=== PATIENT | female | born 1960 | race Caucasian/White ===

== ENCOUNTER 2016-06-07 11:43 | Inpatient (IN) | payer MEDICARE ==
[2016-06-01 16:31] LABS: HEMATOCRIT 42.2 % (36.0-48.0); HEMOGLOBIN 13.3 g/dL (12.0-16.0)
[2016-06-01 16:40] LABS: CALCIUM, SERUM 9.4 MG/DL (8.5-10.4); CHLORIDE, SERUM 102 MMOL/L (96-112); CO2 (CARBON DIOXIDE) 30 MMOL/L (24-34); GFR AFRICAN AMERICAN 84 ML/MIN (>=60); GFR NON AFRICAN AMERICAN 72 ML/MIN (>=60); GLUCOSE, SERUM 112 MG/DL (60-99); POTASSIUM, SERUM 4.2 MMOL/L (3.5-5.3); SODIUM, SERUM 140 MMOL/L (135-148)
[2016-06-01 16:41] LABS: BUN (BLOOD UREA NITROGEN) 15 MG/DL (6-23)
--- NOTE | ~2016-06-07 | CN ---
Consultation Report [facility] [address] [place]. [address] NAME: BEVERLY ROBERTS : 64 STATUS : ADM IN PAT#: [id number] AGE: 56 ADM/REG DATE : 06/07/16 MR#: [id number] REPORT SERV DATE: 06/08/16 DICTATED BY: MAKENNA OLIVIER DATE: 06/08/16 REPORT STATUS : Draft TRANSCRIBED BY: MODL DATE: 06/08/16 CONSULTATION DATE OF CONSULTATION: 06/07/2016 REASON FOR CONSULTATION: Consulted for hypertension. IDENTIFYING DATA: 1. Primary care physician, the patient previously has no PCP, goes to a walk-in clinic, as needed for her health care. 2. Orthopedist, Dr. Can Siu. Previously, had a bilateral TKA with Dr. Julio Cesar Dillon in 2014, and a lumbar fusion in 1998, with Dr. Cam Cerda. 3. Psychiatrist. The patient goes to [facility] and sees Dr. Mayer. HISTORY OF PRESENT ILLNESS: This is a pleasant 56-year-old female, who presents to Dr. Can Siu with intractable pain in her lower back and right hip. She has failed multiple attempts at conservative treatment, she has had a previous lumbar fusion in 1998 of L5-S1 with Dr. Cam Cerda. She displays a L3 through L5 disk disease and stenosis, failing conservative treatment and presents for surgery and is status post L3-L5 open posterior lumbar laminectomy on 06/07/2016, with Dr. Can Siu. The hospitalist have been consulted to help manage her hypertension. At present time, her blood pressure is controlled at 120/59. The patient's history was obtained through interview with the patient and her , and noted technology methodology consultant notes from Dr. Julio Cesar Dillon in 2014. PAST MEDICAL HISTORY: 1. Wears glasses. 2. Speech impediment. 3. Hearing impaired. She reads lips, but her states she can hear slightly out of the right ear. 4. Hypertension. 5. PE in 2010, due to taking hormones. 6. Arthritis. 7. Chronic lumbar pain. 8. Lumbar stenosis. 9. Morbid obesity. 10.Depression. 11.Anxiety. 12.Hypercholesterolemia. HOME MEDICATIONS: 1. Ziac 10/6.25, one tablet p.o. every morning. 2. Valium 10 mg p.o. twice a day. Consultation Report [facility] [address] [place] [place]. [address] NAME: BEVERLY ROBERTS : 64 STATUS : ADM IN PAT#: [id number] AGE: 56 ADM/REG DATE : 06/07/16 MR#: [id number] REPORT SERV DATE: 06/08/16 DICTATED BY: MAKENNA OLIVIER DATE: 06/08/16 REPORT STATUS : Draft TRANSCRIBED BY: CHANDA DATE: 06/08/16 3. Doxepin 50 mg p.o. at bedtime. 4. [place] 10/325 one tablet p.o. every 6 hours p.r.n. pain. ALLERGIES: THE PATIENT HAS NUMEROUS ALLERGIES. PLEASE SEE HER MED LIST. HER RELATES THAT MOST OF THE MEDICATIONS ARE MORE OF AN INTOLERANCE THAN AN ACTUAL ALLERGY. SOCIAL HISTORY: The patient is for 35 years. Has two children, one grown male and one female, lives in a single-level home. No smoking, no illicit drugs. Occasional very rare alcohol use. FAMILY HISTORY: 1. Mother is , had hypertension and was diabetic. Father is . Family does not know specific history about his health, but it was noted he was a heavy smoker and used alcohol. 2. The patient has no siblings. She is an only child. SURGICAL HISTORY: 1. Bilateral TKA 09/01/2014, with Dr. Julio Cesar Dillon. 2. Knee surgery, 1993. 3. Cardiac surgery as a child for a heart murmur. 4. Appendectomy, 1981. 5. Cholecystectomy, 1998. 6. Pancreatitis. 7. Esophageal polyps in 05/2015. 8. Colonoscopy in 05/2015. 9. Lumbar fusion 1998, with Dr. Cam Cerda. 10.Hysterectomy, age 38. REVIEW OF SYSTEMS: Negative other than what is included with HPI. The patient does have a speech impediment, but she can communicate without difficulty. She states no shortness of breath, no nausea and vomiting, no abdominal pain, no chest pain, no fever. Displays no agitation or confusion. PHYSICAL EXAMINATION: VITAL SIGNS: From today: Blood pressure 120/59, heart rate 86, respiratory rate 18, O2 saturation 94% on 2 L nasal cannula. GENERAL: This is a pleasant morbidly obese, female, resting in bed, in no acute distress. She does have a Dilaudid [employer]ATIONS pump in use for pain control postoperatively. NEURO: Her head is atraumatic, normocephalic. Upon awakening her, she was alert and oriented x3. Her cranial nerves 2 through 12 are grossly intact. Her mood is appropriate. NECK: She has a very large neck. It is supple, trachea is midline. No JVD noted. No obvious thyromegaly or lymphadenopathy. EENT: Her sclerae are nonicteric. Her pupils are equal and reactive to light. Her nares are patent. Her mucous membranes moist. Her tongue is midline. No deviation. Her soft Consultation Report [facility] [address] [place]. [address] NAME: BEVERLY ROBERTS : 64 STATUS : ADM IN [facility]#: [id number] AGE: 56 ADM/REG DATE : 06/07/16 MR#: [id number] REPORT SERV DATE: 06/08/16 DICTATED BY: MAKENNA OLIVIER DATE: 06/08/16 REPORT STATUS : Draft TRANSCRIBED BY: CHANDA DATE: 06/08/16 palate rises equally with phonation. CHEST: No pain with palpation. LUNGS: Clear to auscultation bilaterally. She has normal respiratory effort. No increased work of breathing with conversation. She was encouraged to use her incentive spirometer every one hour while awake. CARDIOVASCULAR: S1, S2. Auscultation reveals a regular rate and rhythm. She is on defensive monitoring with a rate of 86. ABDOMEN: Obese, soft, nontender, with bowel sounds active. No palpable organomegaly. Her last bowel movement was 06/06/2016. EXTREMITIES: Her pulses are present bilaterally. No calf tenderness. She does have slight edema in her ankles and her feet. Has bilateral TEDs and SCDs in place for DVT prophylaxis. SKIN: Warm and dry. No unusual rashes, lesions, normal color and turgor. PSYCH: The patient is pleasant. She is cooperative. She has appropriate mood and affect at present time. Surgical wound site, her dressings dry and intact. She has a Davol drain that is compressed with sanguinous drainage noted. LABORATORY DATA: Sodium 140, potassium 4.2, chloride 102, BUN 15, creatinine 0.90, GFR 84, glucose 112, calcium 9.4, hemoglobin 13.1, hematocrit 42.2. Present blood sugar is 147. On 05/11/2016, she had an EKG that was displaying normal sinus rhythm with a rate of 76. ASSESSMENT AND PLAN: 1. We have been consulted to manage this patient's hypertension. Presently, her blood pressure is under control at 120/59. She does have a history of hypertension. Aware. We will continue her home medications for a.m., which is Ziac. She will be placed on a cardiac diet. 2. Morbid obesity. This lady has a weight of 281 pounds and a BMI of 50.0. She has no history of obstructive sleep apnea, but during sleep, she is snoring very loudly with shallow breathing at times. She will have continuous O2 saturation monitoring ordered while she is on a [employer] specifically with O2 to keep her saturations 92% or greater. 3. Anxiety and depression. Aware. She does see a psychiatrist, Dr. Mayer at [facility]. We will continue her Valium and her Sinequan daily. 4. A.m. labs to be obtained: BMP, magnesium, CBC, hemoglobin A1c, and a TSH. The hospitalist group would like to thank you for this consultation. Let us know if we can be of any further assistance. JRERY Makenna Olivier NP Consultation Report [address] [address] NAME: BEVERLY ROBERTS : 64 STATUS : ADM IN PAT#: [id number] AGE: 56 ADM/REG DATE : 06/07/16 MR#: [id number] REPORT SERV DATE: 06/08/16 DICTATED BY: MAKENNA OLIVIER DATE: 06/08/16 REPORT STATUS : Draft TRANSCRIBED BY: CHANDA DATE: 06/08/16 / [id number] CC: Can Siu DO
--- NOTE | ~2016-06-07 | OP ---
Record Of Operation [facility] [address] [place]. [address] NAME: BEVERLY ROBERTS : 64 STATUS : ADM IN PAT#: [id number] AGE: 56 ADM/REG DATE : 06/07/16 MR#: [id number] REPORT SERV DATE: 06/07/16 DICTATED BY: CAN MARI DATE: 06/07/16 REPORT STATUS : Draft TRANSCRIBED BY: MODL DATE: 06/07/16 DATE OF PROCEDURE: 06/07/2016 PREOPERATIVE DIAGNOSES: L3 through L5 disk disease and stenosis, lumbar radiculopathy, and intractable pain. POSTOPERATIVE DIAGNOSES: L3 through L5 disk disease and stenosis, lumbar radiculopathy, and intractable pain. PROCEDURE: 1. L3 through L5 open laminectomy and bilateral foraminotomies, with decompression of the L3 through L5 nerve roots bilaterally (this was done for stenosis in addition to that needed for the interbody fusion portion of the case. 2. L3 through L5 posterolateral fusion bilaterally. 3. L3 through 5 posterior segmental spinal instrumentation using Medtronic pedicle screws. 4. Local morcellized autograft, allograft, bone matrix, neuromonitoring, intraoperative O- arm CT scan with computer navigation, and transforaminal lumbar interbody fusion, L3-4 and L4-L5. SURGEON: Can Mari DO. ANESTHESIA: General. ESTIMATED BLOOD LOSS: 200 mL. COMPLICATIONS: None. INDICATIONS: The patient is a pleasant 56-year-old, with intractable back and buttock pain, failed conservative treatment. After discussion of risks and benefits, she elected to proceed with surgery. PROCEDURE IN DETAIL: I identified the patient in the holding area. Consent was obtained, went to the operating room, underwent general anesthesia with endotracheal intubation, prepped and draped in the usual sterile fashion, operative safety pause was performed, and then we proceeded with surgery. A midline longitudinal incision was made, L3 through L5 was taken down through the fascial layer. Paraspinous muscles were subperiosteally elevated to the tips of transverse processes. Self-retaining retractors were placed. O-arm registration frame was placed in the iliac crest. O-arm was brought in for intraoperative CT scan. Computer registration materials were verified. Under computer guidance, pedicle screws from Medtronic were placed at L3 through L5 bilaterally. O-arm was brought back in to verify good placement of instrumentation. Rongeur was used to remove spinous processes and underlying lamina at L3 through L5. Kerrison removed remaining lamina and underlying ligamentum flavum, and performed partial facetectomies bilaterally L3 through L5 to decompress the L3 through L5 nerve roots bilaterally. Rods were placed over the screws at L3 through L5 bilaterally. Setscrews were placed and final tightened. A knife was used to perform an annulotomy at the L3-L4 level. The disk space was prepared with curettes, rasp, Record Of Operation [address] [address] NAME: BEVERLY ROBERTS : 64 STATUS : ADM IN PAT#: [id number] AGE: 56 ADM/REG DATE : 06/07/16 MR#: [id number] REPORT SERV DATE: 06/07/16 DICTATED BY: CAN MARI DATE: 06/07/16 REPORT STATUS : Draft TRANSCRIBED BY: MODL DATE: 06/07/16 and endplate cutters, and then local morcellized autograft and allograft bone matrix were packed into the L3-L4 interspace. This was repeated at the L4-L5 interspace as well. High- speed decorticating shirley was used to decorticate the remaining bony surfaces, L3 through L5. Irrigation was performed. Hemostasis was achieved. Local morcellized autograft and allograft bone matrix were packed over the decorticated surfaces at L3 through L5. Subfascial drain was placed. A gram of vancomycin powder was sprinkled over the surgical wound. Layered closure was performed. Sterile dressings were applied. The patient awoke, extubated, and taken to recovery room in stable condition. OPERATIVE FINDINGS: L3 through L5 disk disease and stenosis. No sustained neuromonitoring alerts. JONATHAN/MODClover Can Mari DO / [id number] CC: Can Mari DO
--- NOTE | ~2016-06-07 | PREOPHP ---
PreOp History and Physical [place] [id number] [facility] [place]. [address] NAME: BEVERLY ROBERTS : 64 STATUS : ADM IN PAT#: [id number] AGE: 56 ADM/REG DATE : 06/07/16 MR#: [id number] REPORT SERV DATE: 06/07/16 DICTATED BY: CAN SIU DATE: 06/07/16 REPORT STATUS : Draft TRANSCRIBED BY: CHANDA DATE: 06/07/16 CHIEF COMPLAINT: Back pain. HISTORY OF PRESENT ILLNESS: The patient is a 56-year-old with intractable pain in the lower back and right hip. She has failed multiple attempts at conservative treatment and had a previous fusion in [address] Cerda at L5-S1. After informed consent and discussion of risks and benefits, elected to proceed with surgical intervention at this time. She has failed physical therapy, chiropractic steroid injections, and various medications and activity modification. REVIEW OF SYSTEMS: She denies chest pain, shortness of breath, and bowel or bladder changes. ALLERGIES: INCLUDE; ALEVE, ASPIRIN, CELEBREX, DOXYCYCLINE, GLUCOSAMINE, LODINE, MORPHINE, CEPHALEXIN, SOMA, ULTRAM, VICOPROFEN, VIOXX, AND ZOLOFT. HOME MEDICATIONS: Cyclobenzaprine, doxepin, [place], Valium. FAMILY HISTORY: Noncontributory. PAST MEDICAL HISTORY: Includes; hypertension, depression, history of blood clots, and high cholesterol. PHYSICAL EXAMINATION: VITAL SIGNS: Height is 5 feet 4 inches, weight 280, BMI 48.1. GENERAL: The patient is healthy appearing. No acute distress. PSYCH: Alert and oriented x3. Normal mood and affect. Gait is antalgic. VASCULAR: No extremity swelling. HEART: Regular rate and rhythm. LUNGS: Clear to auscultation. ABDOMEN: Soft, nontender, nondistended with good bowel sounds. BREASTS AND RECTAL: Both deferred. NEUROLOGIC: Strength in lower extremities remains intact. No focal deficits. IMAGING: I have reviewed the CT of the lumbar spine. It does show L3-L5 disk disease and stenosis with what appears to be a solid fusion at L5-S1. ASSESSMENT: L3 through L5 disk disease and stenosis, failed conservative treatment as detailed above. PLAN: The patient presents today for surgical intervention. Consent was obtained. All questions were answered, ready to proceed. JCE/CHANDA PreOp History and Physical [address] [place]. [address] NAME: BEVERLY ROBERTS : 64 STATUS : ADM IN PAT#: [id number] AGE: 56 ADM/REG DATE : 06/07/16 MR#: [id number] REPORT SERV DATE: 06/07/16 DICTATED BY: CAN SIU DATE: 06/07/16 REPORT STATUS : Draft TRANSCRIBED BY: CHANDA DATE: 06/07/16 Can Siu DO / [id number] CC: Can Siu DO
--- NOTE | ~2016-06-07 | CN ---
Consultation Report [facility] [address] [place]. [address] NAME: BEVERLY ROBERTS : 64 STATUS : DIS IN PAT#: [id number] AGE: 56 ADM/REG DATE : 06/07/16 MR#: [id number] REPORT SERV DATE: 06/11/16 DICTATED BY: KLAUS TERAN III DATE: 06/11/16 REPORT STATUS : Draft TRANSCRIBED BY: MODClover DATE: 06/11/16 DATE OF CONSULTATION: 06/09/2016 REQUESTING PHYSICIAN: Can Siu D.O. REASON: Postoperative urinary retention. HISTORY OF PRESENT ILLNESS: Ms Roberts is a 56-year-old, white female, admitted to the hospital for spine surgery. She had a catheter during the surgery that was removed postoperatively. She was unable to void and it was replaced. PAST MEDICAL HISTORY: Hearing impaired, speech impediment, hypertension, history of PE, arthritis, esophageal polyps, depression, and anxiety. PAST SURGICAL HISTORY: Appendectomy, cholecystectomy, colonoscopy, hysterectomy, bilateral knee replacements, and cardiac surgery as a child. MEDICATIONS: Home medications were reviewed. PHYSICAL EXAMINATION: GENERAL: The patient is in bed. She appears comfortable. Her Flores catheter is in place draining clear urine. ASSESSMENT: Postoperative urinary retention. PLAN: We will leave the Flores catheter for one week, then perform a voiding trial. PH/CHANDA Klaus Teran III, M.D. / [id number] CC: Can Siu DO
[~2016-06-07 11:43] MED LIST: CRESTOR5 MG PO; CYMBALTA20 PO; CYMBALTA60 PO; NORCO1 TAB PO; PERCOCET1 TA4 PO; SINEQUAN 50 MG50 MG PO; V5 PO; VALIUM10 MG PO; ZANAFLEX 4 MG TA4 MG PO; ZIAC10 PO
[2016-06-07 23:45] LABS: BASOPHILS 0.1 %; BASOPHILS ABSOLUTE 0.01 10/3/uL (0.0-0.16); EOSINOPHILS 0 %; HEMOGLOBIN 10.4 g/dL (12.0-16.0); IMMATURE GRANULOCYTES 0.4 %; IMMATURE GRANULOCYTES ABSOLUTE 0.04 10/3/uL (0.0-0.11); LYMPHOCYTES 11.9 %; LYMPHOCYTES ABSOLUTE 1.14 10/3/uL (0.67-4.30); MEAN CORPUS HGB CONC 31.7 g/dL (32.0-36.0); MEAN CORPUSCULAR HEMOGLOB 27.7 pg (26.0-34.0); MEAN PLATELET VOLUME 9.5 fL (9.2-13.0); MONOCYTES 1.2 %; MONOCYTES ABSOLUTE 0.11 10/3/uL (0.21-1.20); NEUTROPHILS 86.4 %; NEUTROPHILS ABSOLUTE 8.26 10/3/uL (2.02-8.40); PLATELET COUNT 273 10/3/uL (150-400); RBC DISTRIBUTION WIDTH 15.1 % (12.0-16.0); RED CELL COUNT 3.76 10/6/uL (4.0-5.6); WHITE BLOOD CELLS 9.6 10/3/uL (4.5-10.5)
[2016-06-07 23:46] LABS: HEMATOCRIT 32.8 % (36.0-48.0); MANUAL DIFF NO %; MEAN CORPUSCULAR VOLUME 87.2 fL (80-100)
[2016-06-07 23:57] LABS: CHLORIDE, SERUM 102 MMOL/L (96-112); CO2 (CARBON DIOXIDE) 28 MMOL/L (24-34); CREATININE 0.78 MG/DL (0.55-1.02); GFR AFRICAN AMERICAN 100 ML/MIN (>=60); GFR NON AFRICAN AMERICAN 86 ML/MIN (>=60); POTASSIUM, SERUM 3.6 MMOL/L (3.5-5.3); SODIUM, SERUM 141 MMOL/L (135-148)
[2016-06-07 23:59] LABS: BUN (BLOOD UREA NITROGEN) 11 MG/DL (6-23); CALCIUM, SERUM 8.2 MG/DL (8.5-10.4); GLUCOSE, SERUM 168 MG/DL (60-99)
[2016-06-08 06:09] LABS: ALLENS TEST Pos; BE (BASE EXCESS) 0.2 MEQ/L (0 +/- 2.5); CARBOXYHEMOGLOBIN 0.5 % (0-3); DEVICE NC; HCO3 (ACTUAL BICARBONATE) 26.2 MEQ/L (23-27); HEMOBLOGIN CONTENT 10.6 G/DL (12-16); INSTRUMENT SERIAL # 8083; METHEMOGLOBIN 0.3 % (0-3); O2 CONTENT 14.2 VOL% (18-24); OPERATOR ID 19993; PCO2 (CO2 TENSION) 48 MMHG (35-45); PO2 (O2 TENSION) 78 MMHG (79-93); SAMPLE Arterial; pH 7.35 (7.37-7.43)
[2016-06-08 06:30] LABS: BASOPHILS 0.1 %; BASOPHILS ABSOLUTE 0.01 10/3/uL (0.0-0.16); EOSINOPHILS 0 %; HEMATOCRIT 30.5 % (36.0-48.0); HEMOGLOBIN 9.8 g/dL (12.0-16.0); IMMATURE GRANULOCYTES 0.4 %; IMMATURE GRANULOCYTES ABSOLUTE 0.04 10/3/uL (0.0-0.11); LYMPHOCYTES 10.4 %; LYMPHOCYTES ABSOLUTE 1.15 10/3/uL (0.67-4.30); MEAN CORPUS HGB CONC 32.1 g/dL (32.0-36.0); MEAN CORPUSCULAR HEMOGLOB 27.9 pg (26.0-34.0); MEAN CORPUSCULAR VOLUME 86.9 fL (80-100); MEAN PLATELET VOLUME 9.4 fL (9.2-13.0); MONOCYTES ABSOLUTE 0.44 10/3/uL (0.21-1.20); NEUTROPHILS 85.1 %; NEUTROPHILS ABSOLUTE 9.43 10/3/uL (2.02-8.40); PLATELET COUNT 280 10/3/uL (150-400); RBC DISTRIBUTION WIDTH 15.1 % (12.0-16.0); RED CELL COUNT 3.51 10/6/uL (4.0-5.6); WHITE BLOOD CELLS 11.1 10/3/uL (4.5-10.5)
[2016-06-08 06:31] LABS: MANUAL DIFF NO %
[2016-06-08 06:40] LABS: BUN (BLOOD UREA NITROGEN) 10 MG/DL (6-23); CALCIUM, SERUM 7.8 MG/DL (8.5-10.4); CHLORIDE, SERUM 101 MMOL/L (96-112); CO2 (CARBON DIOXIDE) 28 MMOL/L (24-34); CREATININE 0.67 MG/DL (0.55-1.02); GFR AFRICAN AMERICAN 115 ML/MIN (>=60); GFR NON AFRICAN AMERICAN 100 ML/MIN (>=60); GLUCOSE, SERUM 175 MG/DL (60-99); POTASSIUM, SERUM 3.8 MMOL/L (3.5-5.3); SODIUM, SERUM 139 MMOL/L (135-148)
[2016-06-09 06:08] LABS: CALCIUM, SERUM 7.8 MG/DL (8.5-10.4); CHLORIDE, SERUM 107 MMOL/L (96-112); CO2 (CARBON DIOXIDE) 31 MMOL/L (24-34); GFR AFRICAN AMERICAN 120 ML/MIN (>=60); GFR NON AFRICAN AMERICAN 103 ML/MIN (>=60); SODIUM, SERUM 145 MMOL/L (135-148)
[2016-06-09 06:09] LABS: BUN (BLOOD UREA NITROGEN) 14 MG/DL (6-23); GLUCOSE, SERUM 129 MG/DL (60-99)
[2016-06-09] MEDS ORDERED: PCET PO (16:04)
[2016-06-09] MEDS ORDERED: V5 PO (16:05)
== END 2016-06-09 18:05 | disposition home or self-care (01) | DRG 460 ==
LOC: SDC/OF 11:43 → 3SO 20:24
PROVIDERS: Internal Medicine; Orthopaedic Surgery
PROC: 0SG10Z1 (ICD-10-PCS; principal; 2016-06-07 14:00)
PROC: 4A11X4G Monitoring of Peripheral Nervous Electrical Activity, Intraoperative, External Approach (ICD-10-PCS; 2016-06-07 14:00)
DX: M51.16 Intervertebral disc disorders with radiculopathy, lumbar region (principal); Z68.43 Body mass index [BMI] 50.0-59.9, adult; I10 Essential (primary) hypertension; E66.01 Morbid (severe) obesity due to excess calories; F32.9 Major depressive disorder, single episode, unspecified; F41.9 Anxiety disorder, unspecified; R33.9 Retention of urine, unspecified
CPT/HCPCS: 36600; 80048; 82805; 82962; 83036; 83735; 84443; 85014; 85018; 85025; 87641; 88304; 88311; 97116-GP; 97161-GP; A9270-GY; C1713; C1776; G8978-CK-GP; G8979-CH-GP; J0330; J0690; J1170; J1644; J2250; J2370; J2405; J2710; J3010; J3370

== ENCOUNTER 2016-08-16 05:19 | Day surgery (SDC) | payer MEDICARE ==
[~2016-08-16 05:19] MED LIST changes: +PCET PO
== END 2016-08-16 07:47 | disposition home or self-care (01) ==
LOC: SDC 05:19
PROVIDERS: Orthopaedic Surgery
PROC: 3E0S3BZ Introduction of Anesthetic Agent into Epidural Space, Percutaneous Approach (ICD-10-PCS; 2016-08-16)
PROC: 3E0S33Z Introduction of Anti-inflammatory into Epidural Space, Percutaneous Approach (ICD-10-PCS; principal; 2016-08-16 07:00)
DX: M54.16 Radiculopathy, lumbar region (principal); F41.9 Anxiety disorder, unspecified; K85.90 Acute pancreatitis without necrosis or infection, unspecified; M19.90 Unspecified osteoarthritis, unspecified site; G89.29 Other chronic pain; R47.9 Unspecified speech disturbances; I10 Essential (primary) hypertension; M54.5 Low back pain; F32.9 Major depressive disorder, single episode, unspecified; H91.90 Unspecified hearing loss, unspecified ear; K22.8 Other specified diseases of esophagus; Z90.710 Acquired absence of both cervix and uterus; Z90.49 Acquired absence of other specified parts of digestive tract; Z98.1 Arthrodesis status; Z98.890 Other specified postprocedural states; Z79.891 Long term (current) use of opiate analgesic; Z79.899 Other long term (current) drug therapy; Z88.8 Allergy status to other drugs, medicaments and biological substances; Z88.5 Allergy status to narcotic agent; Z88.6 Allergy status to analgesic agent; Z88.1 Allergy status to other antibiotic agents
CPT/HCPCS: J2250; J3010; Q9967